=== PATIENT | male | born 1950 | race Caucasian/White ===

== ENCOUNTER → 2019-08-28 12:38 | Outpatient (CLI) | payer MEDICARE, SELFPAY ==
--- NOTE | 2019-08-28 12:40 | CA_ITS ---
APPROVED REPORT EXAM: Comprehensive 2D, Doppler, and color-flow Echocardiogram [employer] Operator: Jessica Badillo CRT Ht: 6 ft 2 in Wt: 240lbs BSA: 2.35 BP: 138/77 mmHg Indications: copd, O2 DEPENDENT, UP IN BED, NOT LAID DOWN FOR 14 YRS, SMOKER, SOB,, CAD, ELMA, PALPS 2D Dimensions IVSd 1.70 cm LVEF (Visual) 48.10 % PWd 1.30 cm LVDd 3.80 cm LVDs 2.90 cm M-Mode Dimensions LA Diam 4.00 cm (1.9-4.0) Ao Diam 4.10 cm (2.0-3.7) AV Cusp 1.60 cm (1.5-2.6) Left Ventricle Technically difficult and challenging study because of the patient fact in poor acoustic windows. Left atrium is mildly enlarged, left ventricle is normal size, mild concentric left ventricular hypertrophy, visually estimated ejection fraction 50% with no regional wall motion abnormality, diastolic parameters are inconclusive. Right Ventricle Right atrium and right ventricle mildly enlarged with normal contractility. Aortic Valve Aortic valve is minimally thickened and fibrosed, there is no aortic stenosis or aortic insufficiency. Mitral Valve Mitral valve leaflets are minimally thickened, there is mild mitral regurgitation. Tricuspid Valve Tricuspid valve is grossly normal, there is mild tricuspid regurgitation. Pulmonic Valve Pulmonic valve is poorly visualized. Great Vessels Aortic root is normal size. Pericardium No significant pericardial effusion noted. Conclusion 1. Technically difficult and challenging study as described above. 2. Mild biatrial enlargement, normal left ventricular size, mild concentric left ventricular hypertrophy, visually estimated ejection fraction 55% with no regional wall motion abnormality, diastolic parameters are inconclusive. 3. Mildly enlarged right ventricle with normal contractility 4. Mild mitral and tricuspid regurgitation. 5. No significant pericardial effusion noted. Electronically signed by : Jose F Mcmanus, 08/28/2019 19:59:09
== END ==
PROVIDERS: PCP Family Medicine; Visit Provider Physician Assistant
DX: R06.02 Shortness of breath; R00.2 Palpitations; I25.118 Atherosclerotic heart disease of native coronary artery with other forms of angina pectoris; I11.9 Hypertensive heart disease without heart failure; E78.2 Mixed hyperlipidemia; J43.9 Emphysema, unspecified; I65.23 Occlusion and stenosis of bilateral carotid arteries; Z72.0 Tobacco use
CPT/HCPCS: 93270; 93308